=== PATIENT | male | born 1990 | race Two or more races ===

== ENCOUNTER 2021-01-23 14:10 | Emergency (ER) | payer OTHER ==
[~2021-01-23] VITALS: Ht 175.3 cm; Wt 55.8 kg
--- NOTE | 2021-01-23 14:10 | NUR ---
BIB SISTER C/O BILATERAL WRIST LACERATION "OUR MOM JUST AND I FEEL LIKE HURTING MYSELF". TO ER BED 11, HOOKED TO MONITOR, CHANGED TO HOSP GOWN, WARM BLANKET PROVIDED, PATIENT AAO x 4. NAD NOTED. SUICIDE PRECAUTIONS APPLIED. SITTER AT BEDSIDE FOR SAFETY.
--- NOTE | 2021-01-23 14:38 | NUR ---
URINE SAMPLE COLLECTED AND SENT TO LAB
[2021-01-23] MEDS ORDERED: LIDOCAINE 1%-EPI 1:100,000 20 ML VIAL ONE (14:42)
[2021-01-23 14:46] LABS: BILIRUBIN,URINE Negative (NEGATIVE); COLOR,URINE YELLOW (YELLOW); LEUKOCYTE ESTERASE ,URINE Negative (NEGATIVE); NITRITE, URINE Negative (NEGATIVE); PROTEIN,URINE Negative (NEGATIVE); UGLUCOSE Negative (NEGATIVE)
[2021-01-23 14:55] LABS: BACTERIA,URINE Rare /HPF (None Seen); RBC,URINE 0-2 /HPF (0-2); SQUAMOUS EPITHELIAL CELL,UR 0-2 /HPF (None Seen); WBC,URINE 0-2 /HPF (0-3)
[2021-01-23 15:39] LABS: WHITE BLOOD COUNT (AUTO) 5.2 K/uL (4.3-11.0)
[2021-01-23 15:45] LABS: BASOPHILS % (AUTO) 0.2 % (0.0-2.0); HEMATOCRIT 38 % (39-51); HEMOGLOBIN 12.9 g/dL (13.5-17.5); LYMPHOCYTES # (AUTO) 0.7 /CMM (0.8-4.8); MEAN CORPUSCULAR HGB CONC 34 g/dl (31.0-36.0); MEAN CORPUSCULAR VOLUME 91 fL (80-96); MONOCYTES # (AUTO) 0.2 /CMM (0.1-1.30); MONOCYTES % (AUTO) 4.5 % (2.0-12.0); NEUTROPHILS # (AUTO) 4.2 /CMM (1.8-8.9); NEUTROPHILS % (AUTO) 82.3 % (43.0-81.0); PLATELET COUNT (AUTO) 170 /CMM (150-450); RED BLOOD CELL COUNT(AUTO) 4.21 MIL/uL (4.5-6.0)
[2021-01-23 16:22] LABS: CALCIUM, SERUM 8.5 mg/dL (8.5-10.1); CARBON DIOXIDE 25 mmol/L (21-32); CHLORIDE 97 mmol/L (98-107); CREATININE 0.8 mg/dL (0.6-1.3); GLUCOSE 113 mg/dL (74-106); POTASSIUM 3.9 mmol/L (3.5-5.1); SODIUM SERUM 133 mmol/L (136-145); UREA NITROGEN, BLOOD 2 mg/dL (7-18)
[2021-01-23 16:35] LABS: ALANINE AMINOTRANSFERASE 42 U/L (12-78); ALKALINE PHOSPHATASE 107 U/L (46-116); ASPARTATE AMINOTRANSFERASE 30 U/L (15-37); BILIRUBIN,DIRECT 0.3 mg/dL (0.0-0.2); BILIRUBIN,TOTAL 3.4 mg/dL (0.2-1.0); TOTAL PROTEIN, SERUM 7.2 g/dL (6.4-8.2)
[2021-01-23 16:36] LABS: ACETAMINOPHEN < 2 ug/ml (10-30)
[2021-01-23 16:43] LABS: ALCOHOL, BLOOD < 3 mg/dL (0-0)
--- NOTE | 2021-01-23 17:05 | NUR ---
MURIEL OTTO [phone].
--- NOTE | 2021-01-23 18:32 | NUR ---
PATIENT PROVIDED W FOOD. TOLERATING PO WELL.
--- NOTE | 2021-01-23 19:04 | NUR ---
CRISIS EDITORIAL CLERK CLARITA LY AT BEDSIDE
--- NOTE | 2021-01-23 19:12 | NUR ---
REPORT GIVEN TO PADMINI LYNNE FOR JONELLE
--- NOTE | 2021-01-23 19:18 | NUR ---
US AT BEDSIDE.
--- NOTE | 2021-01-23 20:23 | NUR ---
patient went home with sister.
--- NOTE | 2021-01-23 20:23 | NUR ---
Patient discharged to home in stable condition. Written and verbal after care instructions given. Patient verbalizes understanding of instruction.
--- NOTE | 2021-01-23 20:23 | NUR ---
Neelima putnam in [facility] - 01/23/21 at 2022 by ZAKI Patient discharged to home in stable condition. Written and verbal after care instructions given. Patient verbalizes understanding of instruction.
[2021-01-23 21:12] VITALS: BP 113/69
== END 2021-01-23 21:13 | disposition home or self-care (01) ==
LOC: ER 14:10
DX: S61.512A Laceration without foreign body of left wrist, initial encounter (principal); S61.511A Laceration without foreign body of right wrist, initial encounter; E80.7 Disorder of bilirubin metabolism, unspecified; X83.8XXA Intentional self-harm by other specified means, initial encounter; Y93.89 Activity, other specified; Y92.89 Other specified places as the place of occurrence of the external cause; Y99.8 Other external cause status
CPT/HCPCS: 36415; 76705; 80048; 80076; 80299; 80307; 80320; 81001; 83690; 85025; 99285; A6403; J3490; G0480

== ENCOUNTER 2021-01-23 23:39 | Emergency (ER) | payer OTHER ==
[~2021-01-23] VITALS: Ht 175.3 cm; Wt 55.8 kg
[2021-01-23 23:43] VITALS: BP 119/73
--- NOTE | 2021-01-23 23:50 | NUR ---
PT AAOX4. BIBSELF C/O BLEEDING FROM MULTIPLE LACS ON BOTH WRISTS. PT SEEN HERE TODAY. -SI/-HI. REQUESTING FOR WOUND CARE. VSS.
--- NOTE | 2021-01-24 00:10 | NUR ---
TECH AT BEDSIDE FOR WOUND CLEANING. STERI STRIPS AND DERMA AGUSTIN APPLIED TO BILATERAL WRISTS.
--- NOTE | 2021-01-24 00:22 | NUR ---
Patient discharged to home in stable condition. Written and verbal after care instructions given. Patient verbalizes understanding of instruction.
== END 2021-01-24 00:23 | disposition home or self-care (01) ==
LOC: ER 23:41
DX: S61.512A Laceration without foreign body of left wrist, initial encounter (principal); S61.511A Laceration without foreign body of right wrist, initial encounter; S51.811A Laceration without foreign body of right forearm, initial encounter; X83.8XXA Intentional self-harm by other specified means, initial encounter; Y93.89 Activity, other specified; Y92.89 Other specified places as the place of occurrence of the external cause; Y99.8 Other external cause status

== ENCOUNTER 2021-01-27 15:59 | Emergency (ER) | payer OTHER ==
[~2021-01-27] VITALS: Ht 175.3 cm; Wt 55.8 kg
[2021-01-27 16:15] VITALS: BP 115/73
--- NOTE | 2021-01-27 16:39 | NUR ---
wound cleaned and dressed by PAULINO See Patient discharged to home in stable condition. Written and verbal after care instructions given. Patient verbalizes understanding of instruction.
== END 2021-01-27 16:45 | disposition home or self-care (01) ==
LOC: ER 16:05
DX: S61.512D Laceration without foreign body of left wrist, subsequent encounter (principal); S61.511D Laceration without foreign body of right wrist, subsequent encounter; X78.8XXD Intentional self-harm by other sharp object, subsequent encounter
CPT/HCPCS: 99281; A6403

== ENCOUNTER 2024-04-01 10:33 | Emergency (ER) | payer OTHER ==
[~2024-04-01] VITALS: Ht 177.8 cm; Wt 59.0 kg
[2024-04-01 11:26] VITALS: BP 94/70; TEMP 97.8
[2024-04-01] MEDS ORDERED: ONDA4TAB5 PO (12:36)
[2024-04-01] MEDS: IV NS 0.9% 1,000 ML BAG IV ONE (12:41)
[2024-04-01 12:42] VITALS: O2SAT 97
== END 2024-04-01 12:43 | disposition home or self-care (01) ==
LOC: ER 10:37
DX: R53.83 Other fatigue (principal); R11.0 Nausea; R53.1 Weakness
CPT/HCPCS: J7030